=== PATIENT | female | born 1965 | race Caucasian/White ===

== ENCOUNTER 2024-08-01 23:59 | Emergency (ER) | payer MEDICAID, SELFPAY ==
[2024-08-02] VITALS: BMI 25.0
[2024-08-02 00:16] VITALS: BP 128/67; PULSE 84; RESP 20; TEMP 36.7; O2SAT 98
--- NOTE | 2024-08-02 00:25 | EDNOTE_ITS ---
ED Headache RME/HPI General Chief Complaint: Headache Stated Complaint: RIGHT SIDE HEAD PAIN, BLURRY VISION Time Seen by Provider: 08/02/24 00:22 Source: patient Arrival date/time: 08/01/24 23:59 58-year-old female with no known medical history presents to the emergency room with a chief complaint of tenderness and pain due to a sore under her right nostril. Patient states she popped this sore and is now having headache x 1 hour. Mode of arrival: ambulatory Limitations: no limitations Related Data Previous Rx's ?Medication ?Instructions ?Recorded ibuprofen 800 mg tablet 800 mg PO TID PRN pain #30 tabs 03/15/24 cephalexin 500 mg capsule 500 mg PO BID 7 days #14 caps 08/02/24 Allergies Allergy/AdvReac Type Severity Reaction Status Date / Time No Known Allergies Allergy Verified 03/15/24 17:07 Review of Systems Review of Systems Systems Reviewed: All systems reviewed, normal except as documented Constitutional Constitutional: Reports system reviewed and no additional complaints, except as documented, Denies fatigue, Denies fever(s), Denies headache(s) and Denies weakness Eyes Eyes: Reports system reviewed and no additional complaints, except as documented, Denies blurry vision and Denies change in vision ENT Ears, Nose, Mouth, and Throat: Reports system reviewed and no additional complaints, except as documented, Denies otalgia, Denies headache(s), Denies nasal congestion, Denies throat swelling and Denies vertigo Cardiovascular Cardiovascular: Reports system reviewed and no additional complaints, except as documented, Denies chest pain, Denies dyspnea and Denies dyspnea on exertion Respiratory Respiratory: Reports system reviewed and no additional complaints, except as documented, Denies chest congestion, Denies cough, Denies dyspnea, Denies dyspnea on exertion and Denies wheezing Gastrointestinal Gastrointestinal: Reports system reviewed and no additional complaints, except as documented, Denies abdominal pain, Denies cramping, Denies nausea and Denies vomiting Genitourinary Genitourinary: Reports system reviewed and no additional complaints, except as documented Musculoskeletal Musculoskeletal: Reports system reviewed and no additional complaints, except as documented and Denies back pain Integumentary/Breasts Skin/Breast: Reports system reviewed and no additional complaints, except as documented and Denies wounds Neurologic Neurologic: Reports system reviewed and no additional complaints, except as documented, Denies confusion, Denies headache(s), Denies lack of coordination, Denies vertigo and Denies weakness Psychiatric Psychiatric: Reports system reviewed and no additional complaints, except as documented, Denies anxiety, Denies confusion, Denies depression, Denies paranoia, Denies suicidal ideation and Denies tactile hallucinations Endocrine Endocrine: Reports system reviewed and no additional complaints, except as documented and Denies fatigue Hematologic/Lymphatic Hematologic/Lymphatic: Reports system reviewed and no additional complaints, except as documented and Denies lymphadenopathy Allergic/Immunologic Allergic/Immunologic: Reports system reviewed and no additional complaints, except as documented, Denies throat swelling, Denies urticaria and Denies wheezing Past Medical History Social History SMOKING STATUS: Never smoker ED Exam General Limitations: Present no limitations General appearance: Present alert and in no apparent distress Head Head exam: Present atraumatic Eye Eye exam: Present normal appearance, PERRL and EOMI ENT ENT exam: Present normal exam, normal oropharynx and mucous membranes moist Expanded ENT Exam External ear exam: Present normal external inspection Nose exam: Present sinus tenderness and other (Small nasal sore on the right nostril) Nasal speculum exam: Right: other (Sore to the right anterior nostril) Neck Neck exam: Present normal inspection, full ROM and trachea midline Chest Chest inspection: Present normal inspection and symmetric chest wall rise Respiratory Respiratory exam: Present normal lung sounds bilaterally Cardiovascular Cardiovascular exam: Present regular rate, normal rhythm and normal heart sounds Abdominal Exam Abdominal exam: Present soft and normal bowel sounds Extremities Exam Extremities exam: Present normal inspection and full ROM Back Exam Back exam: Present normal inspection and full ROM Neurological Exam Neurological exam: Present alert, oriented X3 and CN II-XII intact Psychiatric Psychiatric exam: Present normal affect and normal mood Skin Skin exam: Present warm, dry, intact and normal color Course Quality Measures none Orders Category Date Time Status Ketorolac Inj [Toradol Inj] Med 08/02/24 00:22 Discontinued 30 mg IM X1 ONE cefTRIAXone [Rocephin] 1,000 mg Med 08/02/24 00:22 Discontinued Lidocaine 1% 20 ml [Xylocaine 1% 20 ML] 2.1 ml IM X1 Vital Signs Vital signs: Vital Signs Temperature 98.1 F 08/02/24 00:16 Pulse Rate 84 08/02/24 00:16 Respiratory Rate 20 08/02/24 00:16 Blood Pressure 128/67 08/02/24 00:16 Pulse Oximetry (%) 98 08/02/24 00:16 Oxygen Delivery Method Room Air 08/02/24 00:16 O2 saturation 98% within normal limits Headache MDM Narrative MDM Narrative:: 58-year-old female with no known medical history presents to the emergency room with a chief complaint of tenderness and pain due to a sore under her right nostril. Patient states she popped this sore and is now having headache x 1 hour. Clinically the patient appears nontoxic and in no apparent distress. Physical examination shows a normal neurological examination. Pupils are PERRLA EOMs are intact patient has clear bilateral lung sounds. ENT examination shows a small sore/abscess that was popped and drained by the patient. Patient states that ever since she popped this abscess she began to develop a headache. Antibiotics were given to the patient patient was discharged and educated to follow-up with primary care provider return to the emergency room for any evidence of worsening signs or symptoms. The patient is currently afebrile there is no signs or symptoms of any infection. Patient is hemodynamically stable Patient data External records reviewed:: [facility] previous records Clinical information provided by:: patient Social determinants that could affect healthcare access:: none Patient has the following chronic illnesses:: No chronic illness How is presenting disease/condition affected by chronic disease/condition?: no chronic disease Evaluation data The following diagnostics were reviewed and interpreted by me:: lab results and radiology exam(s) Lab and/or radiology exams considered but not ordered:: Labs and radiology exams considered and ordered Interpretation Summary: N/A Medications / Prescriptions Medications or Prescriptions considered but not ordered:: Medication given Medication administrations:: Medication Administration History Discontinued Medications Ceftriaxone Sodium 1,000 mg/ (Lidocaine HCl 2.1 ml) 0 mg IM X1 ONE Stop: 08/02/24 00:23 Last Admin: 08/02/24 00:37 Dose: 2.1 mg Documented By: OA Ketorolac Tromethamine (Ketorolac Inj 60 Mg/2 Ml Vial) 30 mg IM X1 ONE Stop: 08/02/24 00:23 Last Admin: 08/02/24 00:37 Dose: 30 mg Documented By: OA Medication given Consultations Consultation(s) initiated? (list below): No Diagnosis Differential diagnosis headache: migraine, tension headache and headache Most likely diagnosis given after review of the tests above:: Headache Admission Indicated Admission indicated?: not indicated Admission Request Was there a request for admission?: No Disposition Plan Disposition Plan: Discharge Discharge Attestation Discharge Attestation: The patient and all family members were given an opportunity to ask questions and understood the discharge instructions. Discharge instructions specifically effects, indications for sooner follow up or return to the emergency department, and the expected course of current diagnosis. Patient condition: Stable Discharge Plan Plan Patient Disposition: HOME (Self Care) Disposition Comment: Stable Prescriptions/Referrals Prescriptions/Med Rec: New cephalexin 500 mg capsule 500 mg PO BID 7 Days Qty: 14 0RF No Action ibuprofen 800 mg tablet 800 mg PO TID PRN (Reason: pain) Qty: 30 0RF Problem List Clinical Impression: Headache, Nasal sore Patient/Caregiver Discharge Instructions Education Materials: Anatomy Nasal, ED Sinus Headache Additional Instructions: Please follow-up with your primary care provider in the next 24 to 48 hours. Antibiotics are sent to your pharmacy please pick them up and take them as indicated. For any evidence of worsening signs or symptoms please return to the emergency room immediately Print Language: Turkmen Stand Alone Forms: Neema Award Info., Patient Portal Info Letter EDWIN/RADHA Supervising Physician EDWIN/RADHA Supervising Physician: Dr Ramos
[2024-08-02] MEDS: KETOROLAC INJ 60 MG/2 ML VIAL 30 MG IM (00:37)
[2024-08-02] MEDS: cefTRIAXone 1,000 MG, LIDOCAINE 1% 20 ML 2.1 ML IM (00:37)
== END 2024-08-02 01:35 | disposition home or self-care (01) ==
LOC: SERX 08-02 01:05
PROVIDERS: Emergency Provider Emergency Medicine; PCP Family Medicine
DX: R51.9 Headache, unspecified (principal)
CPT/HCPCS: 96372; 99283; J0696; J1885; J3490

== ENCOUNTER 2025-03-26 13:21 | Inpatient (IN) | payer MEDICAID, SELFPAY ==
[2025-03-26 13:23] VITALS: BMI 26.3
[2025-03-26 13:34] VITALS: BP 124/82; PULSE 78; RESP 20; TEMP 36.6; O2SAT 99
--- NOTE | 2025-03-26 13:38 | PD.EDRME ---
Rapid Medical Screening Exam RME Arrival date/time: 03/26/25 13:21 59-year-old female presents to the Emergency Department of complaint of abdominal pain Chief Complaint: Abdominal Pain Vital signs: Vital Signs Temperature 97.8 F 03/26/25 13:34 Pulse Rate 78 03/26/25 13:34 Respiratory Rate 20 03/26/25 13:34 Blood Pressure 124/82 03/26/25 13:34 Pulse Oximetry (%) 99 03/26/25 13:34 Oxygen Delivery Method Room Air 03/26/25 13:34
[2025-03-26 14:25] LABS: Basophils # (Auto) 0.0 Thou/mm3 (0.0-0.2); Basophils % (Auto) 0 % (0-2.5); Eosinophils # (Auto) 0.0 Thou/mm3 (0.0-0.5); Eosinophils % (Auto) 0 % (0-10); Hematocrit 39.7 % (36.0-46.0); Hemoglobin 13.1 g/dL (12.0-16.0); Immature Granulocytes Auto 0.02 Thou/mm3 (0.00-0.00); Lymphocytes # (Auto) 0.7 Thou/mm3 (1.0-4.8); Lymphocytes % (Auto) 9 % (10-50); Mean Corpuscular HGB Conc 33.0 g/dl (31.0-37.0); Mean Corpuscular Hemoglobin 29.8 pg (25.0-35.0); Mean Corpuscular Volume 90 fL (80-100); Monocytes # (Auto) 0.3 Thou/mm3 (0.0-0.8); Monocytes % (Auto) 4 % (0-12); Neutrophils # (Auto) 6.4 Thou/mm3 (1.8-7.7); Neutrophils % (Auto) 86 % (37-80); Nucleated Red Blood Cell # 0.00 Thou/mm3 (0.00-0.00); Nucleated Red Blood Cell % 0 /100 WBC (0); Platelet Count 262 Thou/mm3 (140-440); RDW Standard Deviation 41.1 fL (36.4-46.3); Red Blood Count 4.39 Miln/mm3 (4.00-5.20); White Blood Count 7.5 Thou/mm3 (3.6-11.0)
[2025-03-26 14:46] LABS: Alanine Aminotransferase 15 U/L (10-49); Albumin, Serum 4.1 gm/dL (3.5-5.0); Albumin/Globulin Ratio 2.0 (1.2-2.2); Alkaline Phosphatase 91 U/L (46-116); Anion Gap 6 (7-16); Aspartate Amino Transferase 17 U/L (0-34); BUN/Creatinine Ratio 16 Ratio (12-20); Bilirubin,Total 0.5 mg/dL (0.3-1.2); Blood Urea Nitrogen 11 mg/dL (9-23); Calcium 10.1 mg/dL (8.3-10.6); Calcium (Corrected) 10.1 mg/dL (8.5-10.1); Carbon Dioxide 33.7 mMol/L (20.0-31.0); Chloride 103 mMol/L (98-107); Creatinine (Component) 0.7 mg/dL (0.6-1.3); Estimated Creatinine Clearance 90.1 mL/min (>60); Globulin 2.1 gm/dL (2.3-3.5); Glucose 125 mg/dL (74-106); Osmolality,Calculated 285 (275-295); Potassium 4.3 mMol/L (3.4-5.1); Sodium 143 mMol/L (136-145); Total Protein 6.2 gm/dL (5.7-8.2); eGFR > 60 See Note
--- NOTE | 2025-03-26 15:40 | XR_ITS ---
Examination: CT abdomen with intravenous contrast CT pelvis with intravenous contrast 2-D coronal reconstructions 2-D sagittal reconstructions Date and time of exam:March 26, 2025, 1645 hrs. Indications: Lower abdominal pain onset today.. CTDI: vol (mGy) 10.9. DLP: (mGycm) 597. Technique: Multiple axial sections of the abdomen and pelvis have been obtained. 64 slice high-resolution scanner used. 3 mm axial sections have been obtained, post intravenous injection 60 cc [id number]. 2-D sagittal, coronal reconstructions obtained. Low dose protocols were performed. One or more of the following dose reduction techniques were used; automated exposure control, adjustment of the mA and/or KV according to patient size, use of iterative reconstruction technique. Findings: Liver is mildly irregular in contour, no solid liver lesions. No gallstones. Spleen not enlarged. No pancreatic or adrenal mass. No renal or ureteral calculi, no hydronephrosis Surgical clips in the right abdomen. 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
--- NOTE | 2025-03-26 15:56 | PD.EDABDPN ---
ED Abdominal Pain RME/HPI General Chief Complaint: Abdominal Pain Stated complaint: ABD PAIN Time seen by provider: 03/26/25 13:38 Arrival date/time: 03/26/25 13:21 RME / HPI RME / HPI narrative: 03/26/25 13:21 59-year-old female presents to the Emergency Department of complaint of abdominal pain. Onset of symptoms since earlier today severity of symptoms 9 out of 10 described as crampy, diffuse in location associated with nausea. Denies any diarrhea constipation fever vomiting. Denies any other complaints no medication was taken prior to arrival. Related Data Previous Rx's ?Medication ?Instructions ?Recorded ibuprofen 800 mg tablet 800 mg PO TID PRN pain #30 tabs 03/15/24 Allergies Allergy/AdvReac Type Severity Reaction Status Date / Time gabapentin Allergy Severe Swelling Verified 03/26/25 16:06 of Lip/Tongue/Throat pregabalin (From Lyrica) Allergy Severe Swelling Verified 03/26/25 16:06 of Lip/Tongue/Throat duloxetine (From Cymbalta) AdvReac Severe Swelling Verified 03/26/25 16:06 of Lip/Tongue/Throat FLU SHOT Allergy Uncoded 03/26/25 16:06 Review of Systems Review of Systems Narrative Review of Systems: Review of system reviewed and within normal limits except mentioned in HPI ED Exam Narrative Physical exam: VITAL SIGNS: Reviewed. GENERAL APPEARANCE: Alert and interactive, follows commands, no acute distress, HEAD AND FACE: Non-traumatic. ENT: PERRL, pink conjunctivitis, eyelid no trauma, Mucous membrane moist. NECK: Supple, nontender, no nuchal rigidity. CHEST: No tenderness, no crepitus, no paradoxical movement, no retractions. LUNGS: Clear, well ventilated, symmetric, no rales, no wheezing, no ronchi, no stridor, good breath sounds bilaterally. HEART: Regular rate, regular rhythm, no murmur, no gallops. ABDOMEN: Soft, hyperactive positive bowel sounds, nondistended, no guarding, diffuse tenderness, no rebound, no masses, RECTAL: Deferred. GENITAL: Deferred. NEUROLOGICAL: Gross motor function intact sensory function intact, Appropriate for age. MUSCULOSKELETAL: low back nontender, full range of motion. EXTREMITIES: Nontender, full range of motion. SKIN: Color pink, dry, no rash, no lacerations, no abrasions, no contusions. LYMPHATICS: Deferred. Course Quality Measures none Orders Category Date Time Status COVID-19 Screening Questionnaire NOW Care 03/26/25 19:57 Active COVID-19 Screening Questionnaire NOW Care 03/26/25 20:[address] Screening NOW Care 03/26/25 15:40 Active Decision to Admit X1 Care 03/26/25 20:10 Active Insert IV NOW Care 03/26/25 15:40 Active Insert NG / OG tube NOW Care 03/26/25 19:17 Active NG / OG Tube to LIS NOW Care 03/26/25 18:[address] abdomen pelvis w con Stat Exams 03/26/25 15:40 Completed XR chest 1V post procedure Stat Exams 03/26/25 19:16 Completed Amylase Stat Lab 03/26/25 14:09 Completed CBC Stat Lab 03/26/25 14:09 Completed Comprehensive Metabolic Panel Stat Lab 03/26/25 14:09 Completed Lipase Stat Lab 03/26/25 14:09 Completed UA, C/S IF [Urinalysis, C/S if Indicated] Stat Lab 03/26/25 18:08 Completed Famotidine Inj [Pepcid Inj] Med 03/26/25 15:53 Discontinued 20 mg IVP X1 ONE HYDROmorphone INJ [Dilaudid Inj] Med 03/26/25 18:32 Discontinued 1 mg IVP X1 ONE HYDROmorphone INJ [Dilaudid Inj] Med 03/26/25 19:42 Discontinued 1 mg IVP X1 ONE Metoclopramide Inj [Reglan Inj] Med 03/26/25 15:53 Discontinued 10 mg IVP X1 ONE Morphine* Inj Med 03/26/25 15:41 Discontinued 4 mg IVP X1 ONE Ondansetron Inj [Zofran Inj] Med 03/26/25 15:40 Discontinued 4 mg IVP X1 ONE Ringers Lactated 1000 ml [Lactated Ringers] 1,000 ml Med 03/26/25 18:32 Active IV 125 mls/hr Ringers Lactated 1000 ml [Lactated Ringers] 1,000 ml Med 03/26/25 15:54 Discontinued IV 999 mls/hr Vital Signs Vital signs: Vital Signs Temperature 97.8 F 03/26/25 13:34 Pulse Rate 78 03/26/25 13:34 Respiratory Rate 20 03/26/25 13:34 Blood Pressure 124/82 03/26/25 13:34 Pulse Oximetry (%) 99 03/26/25 13:34 Oxygen Delivery Method Room Air 03/26/25 13:34 Abdominal Pain MDM [facility] Narrative [facility] Narrative:: 59-year-old female presents to the Emergency Department of complaint of abdominal pain. Onset of symptoms since earlier today severity of symptoms 9 out of 10 described as crampy, diffuse in location associated with nausea. Denies any diarrhea constipation fever vomiting. Denies any other complaints no medication was taken prior to arrival. 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 Laboratory workup came back unremarkable. CT scan of the abdomen and pelvis showed small bowel obstruction NG tube was placed, and attached to LIS. Patient was given IV fluids, initially given morphine still having pain I added Dilaudid Reglan with significant improvement of pain. Patient will be admitted for further management. I spoke with hospitalist, discussed the case, who admitted the patient. Patient data External records reviewed:: None Clinical information provided by:: patient Social determinants that could affect healthcare access:: none Patient has the following chronic illnesses:: None How is presenting disease/condition affected by chronic disease/condition?: no chronic disease Evaluation data The following diagnostics were reviewed and interpreted by me:: lab results and radiology exam(s) Lab and/or radiology exams considered but not ordered:: None Interpretation Summary: See results [facility] Medications / Prescriptions Medications or Prescriptions considered but not ordered:: None Medication administrations:: Medication Administration History Lactated Ringer's (Lactated Ringers) 1,000 mls @ 125 mls/hr IV .Q8H JOSE Stop: 04/25/25 18:31 Last Admin: 03/26/25 18:55 Dose: 125 mls/hr Documented By: HUI Discontinued Medications Famotidine (Famotidine Inj 10 Mg/Ml Vial 2 Ml) 20 mg IVP X1 ONE Stop: 03/26/25 15:54 Last Admin: 03/26/25 16:16 Dose: 20 mg Documented By: HUI Hydromorphone HCl (Hydromorphone Inj 2 Mg/Ml Vial) 1 mg IVP X1 ONE Stop: 03/26/25 18:33 Last Admin: 03/26/25 18:43 Dose: 1 mg Documented By: HUI Hydromorphone HCl (Hydromorphone Inj 2 Mg/Ml Vial) 1 mg IVP X1 ONE Stop: 03/26/25 19:43 Last Admin: 03/26/25 19:50 Dose: 1 mg Documented By: MARIO Lactated Ringer's (Lactated Ringers) 1,000 mls @ 999 mls/hr IV .Q1H1M ONE Stop: 03/26/25 16:54 Last Infusion: 03/26/25 18:16 Dose: Infused Documented By: Admin: 03/26/25 16:19 Dose: 999 mls/hr Documented By: DB Metoclopramide HCl (Metoclopramide Inj 5 Mg/Ml Vial 2 Ml) 10 mg IVP X1 ONE; Protocol Stop: 03/26/25 15:54 Last Admin: 03/26/25 16:15 Dose: 10 mg Documented By: DB Morphine Sulfate (Morphine Sulf Inj 4 Mg/Ml Vial) 4 mg IVP X1 ONE Stop: 03/26/25 15:42 Last Admin: 03/26/25 16:18 Dose: 4 mg Documented By: HUI Ondansetron HCl (Ondansetron Inj 2 Mg/Ml Inj 2 Ml) 4 mg IVP X1 ONE; Protocol Stop: 03/26/25 15:41 Last Admin: 03/26/25 16:20 Dose: Not Given Documented By: HUI Non-Admin Reason: Cancelled by Provider IV fluids, Zofran Reglan morphine Dilaudid Pepcid Consultations Consultation(s) initiated? (list below): No Diagnosis Differential diagnosis abdominal pain: abdominal pain, diverticulitis and small bowel obstruction Most likely diagnosis given after review of the tests above:: Small bowel obstruction Admission Indicated Admission indicated?: indicated Admission Request Was there a request for admission?: Yes Admission Attestation Admission request attestation: Discussed case with Hospitalist service regarding admission. Discussed patients ED course, exam findings, labs, and radiology results. The Hospitalist [agrees to accept the patient for admission. Disposition Plan Disposition Plan: Admit Discharge Plan Plan Patient Disposition: Admit Acute Care w/in Hospital Prescriptions/Referrals Prescriptions/Med Rec: No Action ibuprofen 800 mg tablet 800 mg PO TID PRN (Reason: pain) Qty: 30 0RF Referrals: No Primary/Family,Physician [Primary Care Provider] - In 1 week Problem List Clinical Impression: Small bowel obstruction Patient/Caregiver Discharge Instructions Print Language: St Helenian Stand Alone Forms: Neema Award Info., Patient Portal Info Letter
[2025-03-26] MEDS: METOCLOPRAMIDE INJ 5 MG/ML VIAL 2 ML 10 MG IVP (16:15)
[2025-03-26] MEDS: FAMOTIDINE INJ 10 MG/ML VIAL 2 ML 20 MG IVP (16:16)
[2025-03-26] MEDS: MORPHINE SULF INJ 4 MG/ML VIAL IVP (16:18)
[2025-03-26] MEDS: RINGERS LACTATED 1000 ML 1,000 ML 999 ML IV (16:19)
[2025-03-26 16:37] LABS: Amylase 108 U/L (30-118)
[2025-03-26 18:11] LABS: Collection Type, Urine Clean Catch
[2025-03-26 18:17] LABS: Amorphous Crystals,Urine Present (Absent); Bilirubin,Urine Negative (Negative); Blood,Urine Negative (Negative); Budding Yeast,Urine Present; Culture Indicated,Urine Contaminated; Glucose, Urine Negative (Negative); Ketones,Urine Negative (Negative); Leukocyte Esterase,Urine Negative (Negative); Nitrite,Urine Negative (Negative); PH,Urine 8.5 (5.0-7.0); Protein,Urine 1+ (Neg - Trace); RBC,Urine 3 /hpf (0-3); Specific Gravity,Urine 1.019 (1.001-1.035); Squamous Epithelial Cell,Urine 11 /hpf (0-5); Urobilinogen,Urine Negative mg/dL (0.0-1.0); WBC,Urine 47 /hpf (0-5)
[2025-03-26 18:20] LABS: Clarity,Urine Turbid (Clear/Hazy); Color,Urine Lt-Orange (Lt Yel-Yel)
[2025-03-26 18:33] VITALS: BP 125/73; PULSE 73; RESP 18; TEMP 36.4; O2SAT 100
[2025-03-26] MEDS: HYDROmorphone INJ 2 MG/ML VIAL 1 MG IVP ×2 (18:43→19:50)
[2025-03-26] MEDS: RINGERS LACTATED 1000 ML 1,000 ML 125 ML IV (18:55)
--- NOTE | 2025-03-26 19:16 | XR_ITS ---
Examination: AP chest single view Technique: AP portable upright chest single view Date and time: March 26, 2025 1923 hrs. Indications: Post orogastric tube placement Findings: Orogastric tube in stomach, tip below the level of the film Accentuation of the basilar interstitial markings. Normal heart size Impression: Orogastric tube in stomach, the tip is below the level of the film
[2025-03-26 20:32] VITALS: BP 125/76; PULSE 75; RESP 14; O2SAT 99
--- NOTE | 2025-03-26 20:56 | ESHP_ITS ---
<Statement entered by Víctor Mackenzie MD - 03/27/25 06:03> I have discussed and was present for the essential components of the history, physical examination, diagnosis, and treatment plan with the resident. I agree with the patient's care as documented by the resident and amended herein by me. Víctor Mackenzie MD FACP. Documentation for date of: 03/26/25 HPI History of Present Illness Chief complaint: Abdominal pain and nausea History of present illness: Miss Reina is a 59-year-old female with a past medical history of hypothyroidism, depression, anxiety disorder, borderline personality disorder, and narcolepsy, who presents to the ED on 03/26/2025 with a chief complaint of abdominal pain. The patient reports an acute onset of crampy, diffuse abdominal pain this morning, rated 6/10 in intensity, associated with nausea. She attempted to relieve the pain by drinking a probiotic, but this resulted in worsening of her symptoms. She has had one small, hard bowel movement with no hematochezia today. She endorses nausea, malaise, weakness, shortness of breath with physical exertion. Denies chest pain, fever, chills, headache, vomiting, diarrhea and hematuria. The patient has a history of multiple abdominal procedures, including six colonoscopies, due to a history of rectal bleeding, for which she is currently awaiting a follow-up appointment at [facility]. Patient reported that per her last PCP appointment they noted increased bowel adhesions. She is concern that those adhesions might be causing the abdominal pain. ED Course: -Initial vitals were BP 124/82, pulse 78, temp 97.8, O2 sat 99% on room air. -Labs significant for CO2 33.7,glucose 125, otherwise -Imaging included abd/pelvis CT showed small bowel obstruction -In the ED, patient was given metoclopramide, famotidine, morphine, 1 L LR -Patient was admitted for small bowel obstruction management Past Medical History: Mentioned above + SIBO Family History: Unremarkable Surgical History: Multiple abdominal surgeries in the past, hysterectomy, laparoscopic surgery 2007, Multiple colonoscopies, right hip replacement. Social History: Occasional drinks wine, marijuana for pain. Denies history of smoking Current Medications: (Source: ) Allergies: Gabapentin, pregabalin, duloxetine, flu shot Review of Systems Review of Systems Systems Reviewed: All systems reviewed, normal except as documented Exam Vital Signs Temp Pulse Resp BP Pulse Ox O2 Del Method 97.6 F 75 14 125/76 99 Room Air 03/26/25 18:33 03/26/25 20:32 03/26/25 20:32 03/26/25 20:32 03/26/25 20:32 03/26/25 20:32 Narrative Exam General: Alert, no acute distress.Conversational and non-toxic appearing. Skin: Warm, dry, intact. No rash or ecchymoses. Head: Normocephalic, atraumatic. Eye: Normal conjunctiva, PERRL. Throat: Oral mucosa moist. No obvious lesions in oropharynx. Cardiovascular: Regular rate and rhythm, no murmur, +S1/S2. Respiratory: Lungs are clear to auscultation, respirations unlabored, no crackles, no wheezing. Gastrointestinal: well-healed midline abdominal surgical scar, soft, nontender, non-distended. No guarding or rebound tenderness. Extremities: No edema, no cyanosis, no clubbing. Scar on the right hip Neuro: Alert and oriented x3.No focal deficits observed. Conversant, moving all extremities. No overt cerebellar signs/incoordination. Psychiatric: Cooperative, appropriate affect Results: Labs 03/26/25 14:09 03/26/25 14:09 Labs: Short CBC 03/26/25 Range/Units 14:09 WBC 7.5 (3.6-11.0) Thou/mm3 Hgb 13.1 (12.0-16.0) g/dL Hct 39.7 (36.0-46.0) % Plt Count 262 (140-440) Thou/mm3 BMP 03/26/25 14:09 Sodium 143 Potassium 4.3 Chloride 103 Carbon Dioxide 33.7 H BUN 11 Creatinine 0.7 Glucose 125 H Calcium 10.1 Liver Function 03/26/25 Range/Units 14:09 Total Bilirubin 0.5 (0.3-1.2) mg/dL AST 17 (0-34) U/L ALT 15 (10-49) U/L Alkaline Phosphatase 91 (46-116) U/L Albumin 4.1 (3.5-5.0) gm/dL Urine 03/26/25 Range/Units 18:08 Urine Color Lt-[place] A (Lt Yel-Yel) Urine Clarity Turbid A (Clear/Hazy) Urine pH 8.5 H (5.0-7.0) Ur Specific [place] 1.019 (1.001-1.035) Urine Protein 1+ A (Neg - Trace) Urine Glucose (UA) Negative (Negative) Quality Measures Quality Measures none Medications Home Medications and Allergies Home Medications ?Medication ?Instructions ?Recorded ?Confirmed ?Type clotrimazole 1 % topical solution 1 applic topical Q12 H 03/26/25 03/26/25 History conjugated estrogens 0.9 mg tablet 0.9 mg PO DAILY 06/0903/26/25 History (Premarin) docusate sodium 100 mg capsule 100 mg PO BID 03/26/25 03/26/25 History fluoxetine 60 mg tablet 60 mg PO DAILY 03/26/2503/16 History levothyroxine 50 mcg tablet 50 mcg PO DAILY 03/26/25 0 03/26/25 History lifitegrast 5 % eye drops in a 1 drp ophthalmic (eye) Q12H 03/26/25 03/26/25 History dropperette (Xiidra) Allergies Allergy/AdvReac Type Severity Reaction Status Date / Time gabapentin Allergy Severe Swelling Verified 03/26/25 16:06 of Lip/Tongue/Throat pregabalin (From Lyrica) Allergy Severe Swelling Verified 03/26/25 16:06 of Lip/Tongue/Throat duloxetine (From Cymbalta) AdvReac Severe Swelling Verified 03/26/25 16:06 of Lip/Tongue/Throat FLU SHOT Allergy Uncoded 03/26/25 16:06 Visit Medications Lactated Ringer's (Lactated Ringers) 1,000 mls @ 125 mls/hr IV .Q8H JOSE Stop: 04/25/25 18:31 Last Admin: 03/26/25 18:55 Dose: 125 mls/hr Ondansetron HCl (Ondansetron Inj 2 Mg/Ml Inj 2 Ml) 4 mg IVP Q6H PRN; Protocol PRN Reason: NAUSEA OR VOMITING Stop: 04/25/25 20:48 Discontinued Medications Famotidine (Famotidine Inj 10 Mg/Ml Vial 2 Ml) 20 mg IVP X1 ONE Stop: 03/26/25 15:54 Last Admin: 03/26/25 16:16 Dose: 20 mg Hydromorphone HCl (Hydromorphone Inj 2 Mg/Ml Vial) 1 mg IVP X1 ONE Stop: 03/26/25 18:33 Last Admin: 03/26/25 18:43 Dose: 1 mg Hydromorphone HCl (Hydromorphone Inj 2 Mg/Ml Vial) 1 mg IVP X1 ONE Stop: 03/26/25 19:43 Last Admin: 03/26/25 19:50 Dose: 1 mg Lactated Ringer's (Lactated Ringers) 1,000 mls @ 999 mls/hr IV .Q1H1M ONE Stop: 03/26/25 16:54 Last Infusion: 03/26/25 18:16 Dose: Infused Metoclopramide HCl (Metoclopramide Inj 5 Mg/Ml Vial 2 Ml) 10 mg IVP X1 ONE; Protocol Stop: 03/26/25 15:54 Last Admin: 03/26/25 16:15 Dose: 10 mg Morphine Sulfate (Morphine Sulf Inj 4 Mg/Ml Vial) 4 mg IVP X1 ONE Stop: 03/26/25 15:42 Last Admin: 03/26/25 16:18 Dose: 4 mg Ondansetron HCl (Ondansetron Inj 2 Mg/Ml Inj 2 Ml) 4 mg IVP X1 ONE; Protocol Stop: 03/26/25 15:41 Last Admin: 03/26/25 16:20 Dose: Not Given Assessment & Plan Plan Patient is a 59-year-old female with a past medical history of hypothyroidism, depression, anxiety disorder, borderline personality disorder, and narcolepsy, who presents to the ED on 03/26/2025 with a chief complaint of abdominal pain. Admitted for small bowel obstruction management. #Acute onset abdominal pain 2/2 #Small bowel obstruction #History of multiple abdominal procedures Patient presented acute onset abdominal pain that is diffuse and crampy pain associated with nausea with no vomiting. Patient does have a history of multiple bowel procedures and adhesions which might have led to the SBO. Abdominal/pelvis CT showed: Multiple fluid distended small bowel loops in the abdomen and pelvis, small bowel obstruction. No signs of bowel ischemia on exam or imaging. - XR small bowel series - NPO - Bowel rest- NGT intermitt low suction - Continue with IV 1L LR at 125mls/hr - Zofran IV for nausea - Pain control with Acetaminophen (pain 1-3), morphine (4-6), Dilaudid (7-10) PRN ? Consult gen-surg as needed or if SBO does not resolve. #Hypothyroidism Home meds levothyroxine 50 mg PO - Started levothyroxine 30mcg IV Qday #Major depressive disorder #Anxiety Disorder #Borderline personality disorder #Hx Narcolepsy Hx of psychiatry disorders. -Pending med [facility] Hospital management: Lines: peripheral IV Diet: NPO Bowel: NA DVT prophylaxis: Heparin SC Disposition: SBO management gem CODE STATUS: DNR Patient seen and assessed under supervision of attending physician and discuss with senior resident Dr. Mabry PGY-2 Brooklynn Gallagher MD PGY-1, Internal Medicine Please note: this document was transcribed using voice recognition technology; minor inaccuracies may be present.
[2025-03-26 21:37] VITALS: BP 135/75; PULSE 68; RESP 18; TEMP 36.5; O2SAT 98
--- NOTE | 2025-03-26 22:01 | XR_ITS ---
Examination: Upper GI series AP supine abdomen 6 views Date and time: March 26, 2025, 1052 hrs. Indications: Abdominal pain and distention this week, small bowel obstruction pattern on CT abdomen pelvis 03/26/2025 1645 hrs. Technique And Findings: 120 cc Gastrografin administered through the patient's orogastric tube Immediate, 30 minute, 1 hour, 2 hour, 4 hour, 6 hour films obtained Contrast in distended small bowel loops including on the 6 hour delayed film Impression: Small bowel obstruction pattern Recommend follow-up films 6:00 AM, 9:00 AM, 12 noon
[2025-03-26] MEDS: MORPHINE SULF INJ 4 MG/ML VIAL 2 MG IV (22:48)
[2025-03-26] MEDS: ONDANSETRON INJ 2 MG/ML INJ 2 ML 4 MG IVP (22:52)
[2025-03-26] MEDS: HEPARIN SOD INJ 5000 UNIT/ML VIAL SC (23:13)
[2025-03-26 23:30] VITALS: BMI 27.1
[2025-03-27] VITALS: BP 130/73; PULSE 62; RESP 17; TEMP 36.2; O2SAT 94
[2025-03-27] MEDS: HYDROmorphone INJ 2 MG/ML VIAL 0.5 MG IVP ×2 (00:34→11:02)
[2025-03-27] MEDS: RINGERS LACTATED 1000 ML 1,000 ML 125 ML IV ×3 (03:07→22:01)
[2025-03-27 04:00] VITALS: BP 128/70; PULSE 60; RESP 17; TEMP 36.1; O2SAT 95
[2025-03-27 05:51] LABS: Basophils # (Auto) 0.0 Thou/mm3 (0.0-0.2); Basophils % (Auto) 0 % (0-2.5); Eosinophils # (Auto) 0.0 Thou/mm3 (0.0-0.5); Eosinophils % (Auto) 0 % (0-10); Hematocrit 40.4 % (36.0-46.0); Hemoglobin 13.0 g/dL (12.0-16.0); Immature Granulocytes Auto 0.03 Thou/mm3 (0.00-0.00); Lymphocytes # (Auto) 0.5 Thou/mm3 (1.0-4.8); Lymphocytes % (Auto) 5 % (10-50); Mean Corpuscular HGB Conc 32.2 g/dl (31.0-37.0); Mean Corpuscular Hemoglobin 29.2 pg (25.0-35.0); Mean Corpuscular Volume 91 fL (80-100); Monocytes # (Auto) 0.6 Thou/mm3 (0.0-0.8); Monocytes % (Auto) 6 % (0-12); Neutrophils # (Auto) 8.4 Thou/mm3 (1.8-7.7); Neutrophils % (Auto) 88 % (37-80); Nucleated Red Blood Cell # 0.00 Thou/mm3 (0.00-0.00); Nucleated Red Blood Cell % 0 /100 WBC (0); Platelet Count 226 Thou/mm3 (140-440); RDW Standard Deviation 41.1 fL (36.4-46.3); Red Blood Count 4.45 Miln/mm3 (4.00-5.20); White Blood Count 9.5 Thou/mm3 (3.6-11.0)
[2025-03-27 06:32] LABS: Alanine Aminotransferase 13 U/L (10-49); Albumin, Serum 3.6 gm/dL (3.5-5.0); Albumin/Globulin Ratio 1.7 (1.2-2.2); Alkaline Phosphatase 88 U/L (46-116); Anion Gap 8 (7-16); Aspartate Amino Transferase 14 U/L (0-34); BUN/Creatinine Ratio 13 Ratio (12-20); Bilirubin,Total 0.5 mg/dL (0.3-1.2); Blood Urea Nitrogen 9 mg/dL (9-23); Calcium 9.8 mg/dL (8.3-10.6); Calcium (Corrected) 10.1 mg/dL (8.5-10.1); Carbon Dioxide 31.1 mMol/L (20.0-31.0); Chloride 104 mMol/L (98-107); Creatinine (Component) 0.7 mg/dL (0.6-1.3); Estimated Creatinine Clearance 91.4 mL/min (>60); Globulin 2.1 gm/dL (2.3-3.5); Glucose 127 mg/dL (74-106); Magnesium 1.8 mg/dL (1.6-2.6); Osmolality,Calculated 285 (275-295); Phosphorous 4.4 mg/dL (2.4-5.1); Potassium 4.0 mMol/L (3.4-5.1); Sodium 143 mMol/L (136-145); Total Protein 5.7 gm/dL (5.7-8.2); eGFR > 60 See Note
[2025-03-27 08:00] VITALS: BP 101/66; PULSE 76; RESP 18; TEMP 36.5; O2SAT 95
--- NOTE | 2025-03-27 09:00 | XR_ITS ---
Examination: Abdomen AP single view Technique: AP portable supine abdomen, single view Exam date and time: March 27, 2025 0908 hours INDICATIONS: Abdominal pain and distention this week, small bowel obstruction pattern on CT abdomen pelvis yesterday, 10 hour delayed film post small bowel series FINDINGS: Contrast present throughout the entire colon IMPRESSION: Negative for small bowel obstruction
[2025-03-27] MEDS: HEPARIN SOD INJ 5000 UNIT/ML VIAL SC ×2 (09:13→20:34)
--- NOTE | 2025-03-27 11:28 | PC.SS ---
Patient is alert/oriented. Patient was able to verify demographics. Patient was admitted for abdominal pain. Patient states she resides alone. Patient is independent with ADL's. No DME. Pharmacy: [facility] PCP: Dr. Moffett, [facility]. Last appt. was in February. Patient discharge plan is to return home. No needs Alt medical decision maker: Vivian Renee, transportation: family
[2025-03-27 12:00] VITALS: BP 110/72; PULSE 74; RESP 18; TEMP 36.4; O2SAT 95
--- NOTE | 2025-03-27 15:22 | ESPR_ITS ---
<Statement entered by Ki Perry MD - 03/27/25 18:19> Overnight admission for small bowel obstruction. Seen and examined at bedside and patient appears to be in only mild discomfort. However, she was able to have a bowel movement in the afternoon and small bowel series showed absence of obstruction. Thus she was started on clear liquid diet and advance to full liquid for dinner and anticipate discharge within next 24 to 48 hours. ----- Note reviewed and agree with care plan as documented. Please refer to the note below for further details. Plan discussed with attending physician Dr. Amol Perry MD PGY-2 Internal Medicine Documentation for date of: 03/27/25 Subjective Subjective Interval history: Patient was seen and examined at bedside. No acute events took place overnight. 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 The abdominal pain is rated 6-7 out of 10, and is worse with movement. Patient admits to nausea, hot and cold feeling but denies recent fevers, or sick contact. She recalls on March 08, 2025 that her bowel movement was bloody. However since then she has not had hematochezia dark stools or diarrhea. She has been told by previous GI doctors that she has SIBO. Not only did the patient tolerate a liquid clear diet at lunch, but by 3 PM in the afternoon she had a bowel movement too. Diet was advanced to full liquid for dinner. Exam Vital Signs Temp Pulse Resp BP Pulse Ox O2 Del Method 97.7 F 76 18 101/66 95 Room Air 03/27/25 08:00 03/27/25 08:00 03/27/25 08:00 03/27/25 08:00 03/27/25 08:00 03/27/25 08:00 Narrative Exam Physical Exam:? General: Alert, no acute distress.Conversational and non-toxic appearing. Skin: Warm, dry, intact. No rash or ecchymoses. Head: Normocephalic, atraumatic. Eye: Normal conjunctiva, PERRL. Throat: Oral mucosa moist. No obvious lesions in oropharynx. Cardiovascular: Regular rate and rhythm, no murmur, +S1/S2. Respiratory: Lungs are clear to auscultation, respirations unlabored, no crackles, no wheezing. Gastrointestinal: well-healed midline abdominal surgical scar, soft, nontender, non-distended. Distended bowel loops present in the left lower quadrant. Somewhat diminished bowel sounds throughout. Percussion tympanic in all 4 quadrants. No guarding or rebound tenderness. Extremities: No edema, no cyanosis, no clubbing. Scar on the right hip Neuro: Alert and oriented x3.No focal deficits observed. Conversant, moving all extremities. No overt cerebellar signs/incoordination. Psychiatric: Cooperative, appropriate affect Objective Labs 03/28/25 04:15 03/28/25 04:15 Labs: Laboratory Results - last 24 hr 03/26/25 03/26/25 03/26/25 14:09 14:09 18:08 WBC RBC Hgb Hct MCV MCH MCHC RDW Std Deviation Plt Count Neut % (Auto) Lymph % (Auto) [place] % (Auto) Eos % (Auto) Baso % (Auto) Neut # (Auto) Lymph # (Auto) [place] # (Auto) Eos # (Auto) Baso # (Auto) Immature Gran # (Auto) Absolute Nucleated RBC Immature Gran % Nucleated RBC % Sodium Potassium Chloride Carbon Dioxide Anion Gap BUN Creatinine Estim Creat Clear Calc eGFR BUN/Creatinine Ratio Glucose Calculated Osmolality Calcium Corrected Calcium Phosphorus Magnesium Total Bilirubin AST ALT Alkaline Phosphatase Total Protein Albumin Globulin Albumin/Globulin Ratio Amylase 108 Cancelled Ur Collection Type Clean Catch Urine Color Lt-[place] A Urine Clarity Turbid A Urine pH 8.5 H Ur Specific [place] 1.019 Urine Protein 1+ A Urine Glucose (UA) Negative Urine Ketones Negative Urine Blood Negative Urine Nitrite Negative Urine Bilirubin Negative Urine Urobilinogen (Auto) Negative Ur Leukocyte Esterase Negative Urine RBC 3 Urine WBC 47 H Ur Squamous Epith Cells 11 H Amorphous Crystals Present A Urine Bacteria None Urine Yeast (Budding) Present A Ur Culture Indicated? Contaminated 03/27/25 04:28 WBC 9.5 RBC 4.45 Hgb 13.0 Hct 40.4 MCV 91 MCH 29.2 MCHC 32.2 RDW Std Deviation 41.1 Plt Count 226 D Neut % (Auto) 88 H Lymph % (Auto) 5 L [place] % (Auto) 6 Eos % (Auto) 0 Baso % (Auto) 0 Neut # (Auto) 8.4 H Lymph # (Auto) 0.5 L [place] # (Auto) 0.6 Eos # (Auto) 0.0 Baso # (Auto) 0.0 Immature Gran # (Auto) 0.03 H Absolute Nucleated RBC 0.00 Immature Gran % 0 Nucleated RBC % 0 Sodium 143 Potassium 4.0 Chloride 104 Carbon Dioxide 31.1 H Anion Gap 8 BUN 9 Creatinine 0.7 Estim Creat Clear Calc 91.4 eGFR > 60 BUN/Creatinine Ratio 13 Glucose 127 H Calculated Osmolality 285 Calcium 9.8 Corrected Calcium 10.1 Phosphorus 4.4 Magnesium 1.8 Total Bilirubin 0.5 AST 14 ALT 13 Alkaline Phosphatase 88 Total Protein 5.7 Albumin 3.6 D Globulin 2.1 L Albumin/Globulin Ratio 1.7 Amylase Ur Collection Type Urine Color Urine Clarity Urine pH Ur Specific [place] Urine Protein Urine Glucose (UA) Urine Ketones Urine Blood Urine Nitrite Urine Bilirubin Urine Urobilinogen (Auto) Ur Leukocyte Esterase Urine RBC Urine WBC Ur Squamous Epith Cells Amorphous Crystals Urine Bacteria Urine Yeast (Budding) Ur Culture Indicated? Quality Measures Quality Measures none Assessment & Plan Assessment Current Active Medications: Generic Name Dose Route Start Last Admin Trade Name Freq PRN Reason Stop Dose Admin Heparin Sodium (Porcine) 5,000 unit 03/26/25 22:15 03/27/25 09:13 Heparin Sod Inj 5000 Unit/Ml Vial SC 04/09/25 22:14 5,000 unit BID JOSE Administration Hydromorphone HCl 0.5 mg 03/26/25 23:55 03/27/25 11:02 Hydromorphone Inj 2 Mg/Ml Vial IVP 03/31/25 23:51 0.5 mg Q4HR PRN Administration Pain 7-10 ( SEVERE) Lactated Ringer's 1,000 mls @ 125 mls/hr 03/26/25 18:32 03/27/25 11:02 Lactated Ringers IV 04/25/25 18:31 125 mls/hr .Q8H JOSE Administration Morphine Sulfate 2 mg 03/26/25 21:02 Morphine Sulf Inj 4 Mg/Ml Vial IV 03/31/25 21:01 Q6HR PRN PAIN SCALE 4-6 (Moderate Ondansetron HCl 4 mg 03/26/25 20:49 03/26/25 22:52 Ondansetron Inj 2 Mg/Ml Inj 2 Ml IVP 04/25/25 20:48 4 mg Q6H PRN Administration NAUSEA OR VOMITING Protocol Plan 59-year-old female with a past medical history of hypothyroidism, depression, anxiety disorder, borderline personality disorder, and narcolepsy, who presents to the ED on 03/26/2025 with a chief complaint of abdominal pain. Patient was admitted for workup and inpatient management of small bowel obstruction as seen in preliminary imaging. #Acute onset abdominal pain 2/2 #Small bowel obstruction, resolved #History of multiple abdominal procedures Patient presented acute onset abdominal pain that is diffuse and crampy pain associated with nausea with no vomiting.? Patient does have a history of multiple bowel procedures and adhesions which might have led to the SBO. Abdominal/pelvis CT showed: Multiple fluid distended small bowel loops in the abdomen and pelvis, small bowel obstruction. No signs of bowel ischemia on exam or imaging. Small bowel series: 10-hour delayed film post small bowel series showed contrast present throughout the entire colon demonstrating resolution of small bowel obstruction Patient had a moderate size BM in the early afternoon of 03/27 - DC'ed NGT - Diet advanced to full liquid - Continue with IV 1L LR at 125mls/hr - Zofran IV for nausea - Pain control with Acetaminophen (pain 1-3), morphine (4-6), Dilaudid (7-10) PRN ? Consult gen-surg as needed or if SBO does not resolve. #Hypothyroidism Home meds levothyroxine 50 mg PO - Started levothyroxine 30mcg IV Qday #Major depressive disorder #Anxiety Disorder #Borderline personality disorder #Hx Narcolepsy Hx of psychiatry disorders. -Resumed home fluoxetine 60mg daily Hospital management: Lines: peripheral IV Diet: NPO Bowel: NA DVT prophylaxis: Heparin SC Disposition: SBO? management gem CODE STATUS: DNR Attending Provider Attestation/Addendum Yary Ashton DO, attest that I was physically present for the ray portions of the service and evaluated the patient with the resident and I reviewed and discussed the case with the resident and agree with the resident's findings and plans of care as documented above Patient seen and evaluated this AM. KUB shows resolution of SBO. Patient reports that she continues to have some lingering pain upon moving. She has never had an SBO in the past. Liquid diet has been started. Patient has been tolerating well. Will advance as tolerated. If patient is able to tolerate breakfast, mechanically soft diet, anticipate DC within next 24h.
[2025-03-27 16:00] VITALS: BP 124/77; PULSE 77; RESP 17; TEMP 36.5; O2SAT 97
[2025-03-27] MEDS: MORPHINE SULF INJ 4 MG/ML VIAL 2 MG IV (19:26)
[2025-03-27 20:00] VITALS: BP 99/53; PULSE 78; RESP 18; TEMP 36.4; O2SAT 97
[2025-03-28] VITALS: BP 104/53; PULSE 78; RESP 18; TEMP 36.3; O2SAT 94
[2025-03-28] MEDS: MORPHINE SULF INJ 4 MG/ML VIAL 2 MG IV ×2 (02:19→08:42)
[2025-03-28 04:00] VITALS: BP 109/62; PULSE 74; RESP 18; TEMP 36.2; O2SAT 97
[2025-03-28 05:39] LABS: Basophils # (Auto) 0.0 Thou/mm3 (0.0-0.2); Basophils % (Auto) 0 % (0-2.5); Eosinophils # (Auto) 0.1 Thou/mm3 (0.0-0.5); Eosinophils % (Auto) 2 % (0-10); Hematocrit 33.2 % (36.0-46.0); Hemoglobin 10.5 g/dL (12.0-16.0); Immature Granulocytes Auto 0.01 Thou/mm3 (0.00-0.00); Lymphocytes # (Auto) 1.5 Thou/mm3 (1.0-4.8); Lymphocytes % (Auto) 34 % (10-50); Mean Corpuscular HGB Conc 31.6 g/dl (31.0-37.0); Mean Corpuscular Hemoglobin 29.1 pg (25.0-35.0); Mean Corpuscular Volume 92 fL (80-100); Monocytes # (Auto) 0.3 Thou/mm3 (0.0-0.8); Monocytes % (Auto) 7 % (0-12); Neutrophils # (Auto) 2.6 Thou/mm3 (1.8-7.7); Neutrophils % (Auto) 57 % (37-80); Nucleated Red Blood Cell # 0.00 Thou/mm3 (0.00-0.00); Nucleated Red Blood Cell % 0 /100 WBC (0); Platelet Count 182 Thou/mm3 (140-440); RDW Standard Deviation 42.1 fL (36.4-46.3); Red Blood Count 3.61 Miln/mm3 (4.00-5.20); White Blood Count 4.5 Thou/mm3 (3.6-11.0)
[2025-03-28] MEDS: RINGERS LACTATED 1000 ML 1,000 ML 125 ML IV (06:30)
[2025-03-28 06:34] LABS: Alanine Aminotransferase 11 U/L (10-49); Albumin, Serum 2.9 gm/dL (3.5-5.0); Albumin/Globulin Ratio 1.8 (1.2-2.2); Alkaline Phosphatase 71 U/L (46-116); Anion Gap 8 (7-16); Aspartate Amino Transferase 13 U/L (0-34); BUN/Creatinine Ratio 11 Ratio (12-20); Bilirubin,Total 0.5 mg/dL (0.3-1.2); Blood Urea Nitrogen 8 mg/dL (9-23); Calcium 8.3 mg/dL (8.3-10.6); Calcium (Corrected) 9.2 mg/dL (8.5-10.1); Carbon Dioxide 30.4 mMol/L (20.0-31.0); Chloride 104 mMol/L (98-107); Creatinine (Component) 0.7 mg/dL (0.6-1.3); Estimated Creatinine Clearance 91.4 mL/min (>60); Globulin 1.6 gm/dL (2.3-3.5); Glucose 84 mg/dL (74-106); Magnesium 1.5 mg/dL (1.6-2.6); Osmolality,Calculated 280 (275-295); Phosphorous 2.9 mg/dL (2.4-5.1); Potassium 4.2 mMol/L (3.4-5.1); Sodium 142 mMol/L (136-145); Total Protein 4.5 gm/dL (5.7-8.2); eGFR > 60 See Note
[2025-03-28 08:00] VITALS: BP 125/67; PULSE 76; RESP 16; TEMP 36.1; O2SAT 97
[2025-03-28] MEDS: Magnesium Sulfate 2 GM Ivpb 2 GM/50 ML BAG IV ×2 (08:41→10:41)
[2025-03-28] MEDS: HEPARIN SOD INJ 5000 UNIT/ML VIAL SC (08:41)
[2025-03-28] MEDS: LEVOTHYROXINE SODIUM 25 MCG TABLET 50 MCG PO (10:35)
[2025-03-28] MEDS: LIDOCAINE 5% 1 PATCH TOP (10:35)
--- NOTE | 2025-03-28 11:17 | ESDS_ITS ---
<Statement entered by Yary Carmichael DO - 03/28/25 17:32> I, Yary Carmichael DO, attest that I was physically present for the ray portions of the service and evaluated the patient with the resident and I reviewed and discussed the case with the resident and agree with the resident's findings and plans of care as documented above <Statement entered by Britton Brown MD - 03/28/25 13:53> Patient was examined with the team including attending physician. Note reviewed, I agree with the discharge plan as documented. - Britton Brown MD PGY 3 Disclaimer: The document may contain phonetic/typographic errors due to voice recognition software. Planned Discharge Date 03/28/25 DS: Providers Provider Date of admission: 03/27/25 10:28 Primary care physician: Physician No Primary/Family Admitting Provider: Víctor Mackenzie MD Attending Provider on Admission: Víctor Mackenzie MD Attending Provider on DC: Terry Shirley DO Discharging Provider: Terry Shirley DO DS: Diagnosis Problem List Completed Was Problem List Reviewed/Reconciled?: Yes Hospital Course Hospital Course Hospital course: 59-year-old female with past medical history of hypothyroidism, depression, anxiety disorder, borderline personality disorder, and presented to the ED on 03/26/2025 with a chief complaint of abdominal pain. Patient had her last bowel movement in the yard caller of the day of the ED presentation and the passage of stool had not made a difference into her abdominal pain. Initial CT A/P showed pattern concerning for SBO. There were multiple fluid distended small bowel loops in the abdomen and pelvis. Small bowel series at the 10-hour delayed film showed contrast present throughout the entire colon demonstrating resolution of the SBO. NG tube was discontinued and diet was advanced to clear liquid. Patient was able to tolerate the intake without nausea or vomiting, and by early afternoon of 03/27 she already had a sizable formed bowel movement. Diet was subsequently advanced to routine, with continued tolerance, and improvement in presenting symptoms. WBC count stayed less than 10, hemoglobin was stable at 13, there was a dip on 03/28 with Hgb 10.5. Patient stayed afebrile. Patient was seen and examined at bedside. No acute events took place overnight. Admission Diagnoses: #Acute onset abdominal pain 2/2 #Small bowel obstruction, resolved #History of multiple abdominal procedures #Hypothyroidism #Major depressive disorder #Anxiety disorder #Borderline personality disorder #History of narcolepsy Discharge Instructions: - Follow-up with your primary care provider within 1 week of discharge from hospital - Follow your hemoglobin levels through repeated labs and watch for symptoms of lightheadedness, pallor, fatigue, shortness of breath, etc concerning for anemia secondary to possible GI bleed - If there are concerns over worsening anemia or evidence for blood on the stool, recommend outpatient gastroenterology referral for evaluation of colonoscopy need. - Continue to take medications as prescribed below in the prescriptions/med rec section - You have had developed abdominal adhesions from previous abdominal surgeries, recommend use of keiq-beq-bwzwrvo laxatives for prevention of constipation - If your symptoms recur or worsen, or there are new onset fevers >38C, go to ER. This case was discussed with my attending physician, Dr. Carmichael, and senior resident, Dr Brown. Terry Shirley, DO PGY I Status at Discharge Cognitive/behavioral status at discharge: stable Functional status at discharge: independent ambulation Overall status at discharge: patient is back to baseline Time Spent with Patient Time attestation: Total time spent providing and/or coordinating discharge services:More than 50% of the patient's hospital stay Time spent: Greater than 30 minutes Exam Vital Signs Temp Pulse Resp BP Pulse Ox O2 Del Method 97 F 76 16 125/67 97 Room Air 03/28/25 08:00 03/28/25 08:00 03/28/25 08:00 03/28/25 08:00 03/28/25 08:00 03/28/25 08:00 Narrative Exam General: Alert, no acute distress.Conversational and non-toxic appearing. Skin: Warm, dry, intact. No rash or ecchymoses. Head: Normocephalic, atraumatic. Eye: Normal conjunctiva, PERRL. Throat: Oral mucosa moist. No obvious lesions in oropharynx. Cardiovascular: Regular rate and rhythm, no murmur, +S1/S2. Respiratory: Lungs are clear to auscultation, respirations unlabored, no crackles, no wheezing. Gastrointestinal: well-healed midline abdominal surgical scar, soft. Somewhat diminished bowel sounds throughout. Percussion tympanic in all 4 quadrants. Mild tenderness to palpation over LLQ Distended bowel loops present in the left lower quadrant. No guarding or rebound tenderness. Extremities: No edema, no cyanosis, no clubbing. Scar on the right hip Neuro: Alert and oriented x3.No focal deficits observed. Conversant, moving all extremities. No overt cerebellar signs/incoordination. Psychiatric: Cooperative, appropriate affect Discharge Plan Plan Patient Disposition: HOME (Self Care) Patient condition on transfer: Stable Care Plan Goals: - Follow-up with your primary care provider within 1 week of discharge from hospital - Follow your hemoglobin levels through repeated labs and watch for symptoms of lightheadedness, pallor, fatigue, shortness of breath, etc concerning for anemia secondary to possible GI bleed - If there are concerns over worsening anemia or evidence for blood on the stool, recommend outpatient gastroenterology referral for evaluation of colonoscopy need. - Continue to take medications as prescribed below in the prescriptions/med rec section - You have had developed abdominal adhesions from previous abdominal surgeries, recommend use of gzhu-lao-sphauzx laxatives for prevention of constipation - If your symptoms recur or worsen, or there are new onset fevers >38C, go to ER. Prescriptions/Referrals Prescriptions/Med Rec: No Action Xiidra 5 % dropperette 1 drp OPHTHALMIC (EYE) Q12H Patient Comments: INSTILL 1 DROP IN BOTH EYES TWICE DAILY FOR 30 DAYS clotrimazole 1 % solution 1 applic TOPICAL Q12H Patient Comments: APPLY TO AFFECTED AREA TWICE A DAY Premarin 0.9 mg tablet 0.9 mg PO DAILY Patient Comments: TAKE 1 TABLET BY MOUTH EVERY DAY docusate sodium 100 mg capsule 100 mg PO BID Patient Comments: TAKE 1 CAPSULE BY MOUTH TWICE A DAY NEEDED FOR CONSTIPATION fluoxetine 60 mg tablet 60 mg PO DAILY Patient Comments: TAKE 1 TABLET BY MOUTH EVERY DAY levothyroxine 50 mcg tablet 50 mcg PO DAILY Patient Comments: TAKE 1 TABLET BY MOUTH EVERY DAY Referrals: No Primary/Family,Physician [Primary Care Provider] Patient/Caregiver Discharge Instructions Education Materials: Small Bowel Obstruction, How the Colon Works Print Language: Greenlandic Stand Alone Forms: Neema Award Info., Patient Portal Info Letter Quality Discharge Quality Measures VTE prophylaxis
[2025-03-28 12:00] VITALS: BP 109/67; PULSE 80; RESP 16; TEMP 36.2; O2SAT 95
== END 2025-03-28 14:50 | disposition home or self-care (01) | DRG 247 ==
LOC: SERX 20:11 → SERHOLD 21:56 → S3NX 03-27 06:12
PROVIDERS: Nurse Practitioner Primary Care; Admitting Provider Internal Medicine; Emergency Provider Family Medicine; Visit Provider Internal Medicine
DX: K56.50 Intestinal adhesions [bands], unspecified as to partial versus complete obstruction (principal); E03.9 Hypothyroidism, unspecified; F41.9 Anxiety disorder, unspecified; G47.419 Narcolepsy without cataplexy; F32.9 Major depressive disorder, single episode, unspecified; F60.3 Borderline personality disorder; Z66 Do not resuscitate; Z79.890 Hormone replacement therapy; Z88.8 Allergy status to other drugs, medicaments and biological substances
CPT/HCPCS: 36415; 74018; 74177; 74250; 80053; 81001; 82150; 83690; 83735; 84100; 85025; 96361; 96374; 96375; 96376; 99284; A4649; G0378; J1171; J1644; J2270; J2405; J2765; J3475; J3490; J7120; Q9963; Q9967; A9270

== ENCOUNTER 2025-04-12 01:26 | Emergency (ER) | payer MEDICAID, SELFPAY ==
[2025-04-12 01:27] VITALS: BMI 26.4
[2025-04-12 02:34] VITALS: BP 131/77; PULSE 92; RESP 18; TEMP 36.7; O2SAT 98
--- NOTE | 2025-04-12 02:45 | PD.EDEYE ---
ED Eye Problem RME/HPI General Chief complaint: Eye Problems Stated complaint: LEFT EYE PAIN Time Seen by Provider: 04/12/25 02:41 Arrival date/time: 04/12/25 01:26 This is a case of 59-year-old female with no medical history came in in the emergency room due to pain on the left upper and left lower eyelid for 2 days patient states that she was in the backyard and started to have pain redness and swelling on the left upper and lower eyelid patient denies any blurring of vision denies any eye injury or trauma denies any eye pain patient stated that due to pain in the left upper eyelid she started to have headache denies any injury or trauma denies any blurring of vision denies any numbness weakness tingling sensation Limitations: no limitations Related Data Home Medications ?Medication ?Instructions ?Recorded ?Confirmed clotrimazole 1 % topical solution 1 applic topical Q12H 03/26/25 03/26/25 conjugated estrogens 0.9 mg tablet 0.9 mg PO DAILY 03/26/25 03/26/25 (Premarin) docusate sodium 100 mg capsule 100 mg PO BID 03/26/25 03/26/25 fluoxetine 60 mg tablet 60 mg PO DAILY 03/26/25 03/26/25 levothyroxine 50 mcg tablet 50 mcg PO DAILY 03/26/25 03/26/25 lifitegrast 5 % eye drops in a 1 drp ophthalmic (eye) Q12H 03/26/25 03/26/25 dropperette (Xiidra) Previous Rx's ?Medication ?Instructions ?Recorded doxycycline monohydrate 100 mg 100 mg PO BID #20 caps 04/12/25 capsule erythromycin 5 mg/gram (0.5 %) eye 0.5 inch ophthalmic (eye) TID #3.5 04/12/25 ointment grams Allergies Allergy/AdvReac Type Severity Reaction Status Date / Time gabapentin Allergy Severe Swelling Verified 03/26/25 16:06 of Lip/Tongue/Throat pregabalin (From Lyrica) Allergy Severe Swelling Verified 03/26/25 16:06 of Lip/Tongue/Throat duloxetine (From Cymbalta) AdvReac Severe Swelling Verified 03/26/25 16:06 of Lip/Tongue/Throat FLU SHOT Allergy Uncoded 03/26/25 16:06 Review of Systems Review of Systems Systems Reviewed: All systems reviewed, normal except as documented Constitutional Constitutional: Reports system reviewed and no additional complaints, except as documented and Reports as per HPI Eyes Eyes: Reports system reviewed and no additional complaints, except as documented, Reports as per HPI, Denies blind spots, Denies blurry vision, Denies change in vision, Denies decreased night vision, Denies diplopia, Denies eye discharge, Denies dry eyes, Denies exophthalmos, Denies floaters, Denies irritation, Denies itchy eyes, Denies loss of peripheral vision, Denies loss of vision, Denies photophobia, Denies requires corrective lenses, Denies seeing flashes, Denies spots in vision and Denies tunnel vision Cardiovascular Cardiovascular: Reports system reviewed and no additional complaints, except as documented and Reports as per HPI Respiratory Respiratory: Reports system reviewed and no additional complaints, except as documented and Reports as per HPI Gastrointestinal Gastrointestinal: Reports system reviewed and no additional complaints, except as documented and Reports as per HPI Musculoskeletal Musculoskeletal: Reports system reviewed and no additional complaints, except as documented and Reports as per HPI Neurologic Neurologic: Reports system reviewed and no additional complaints, except as documented, Reports as per HPI and Denies loss of vision Allergic/Immunologic Allergic/Immunologic: Denies itchy eyes Past Medical History Past Medical History CARDIAC: Negative Cardiac Disorders or Congestive Heart Failure RESPIRATORY: Negative Chronic Obstructive Pulmonary Disease (COPD) or Asthma GASTROINTESTINAL: Positive Gastrointestinal Disorders and Obstructive Bowel GENITOURINARY: Negative Renal Disease REPRODUCTIVE: Positive Previous Pregnancies MUSCULOSKELETAL: Positive Fractures (Right hip) ENDOCRINE: Positive Hypothyroidism; Negative Diabetes Mellitus Type 1 or Diabetes Mellitus Type 2 HEMATOLOGIC: Negative Sickle Cell Disease OTHER HISTORY: Positive Hospitalization and Blood Transfusions; Negative Blood Transfusion Reaction or Anesthesia Reactions Surgical History SURGICAL: Positive Abdominal Surgery (x2 abdominal surgery 2007) Social History SMOKING STATUS: Never smoker ED Exam General Limitations: Present no limitations General appearance: Present alert, in no apparent distress and other (Patient is awake alert oriented not in distress nontoxic looking well-hydrated well-nourished) Head Head exam: Present atraumatic, normocephalic and normal inspection Eye Eye exam: Present normal appearance, PERRL, EOMI and other (PERRL EOM intact normal conjunctiva no papilledema no hyphema no periorbital cellulitis noted a redness swelling tenderness on the left upper and lower eyelid no discharge no foreign body suggestive of external hordeolum the rest of the eye exam were normal and unremarkable) ENT ENT exam: Present normal exam, normal oropharynx, mucous membranes moist and other (Normal HEENT exam) Neck Neck exam: Present normal inspection, full ROM, trachea midline and other (34 meningeal sign); Absent tenderness, meningismus, lymphadenopathy or thyromegaly Chest Chest inspection: Present normal inspection and symmetric chest wall rise; Absent tenderness Respiratory Respiratory exam: Present normal lung sounds bilaterally; Absent respiratory distress, wheezes, stridor, accessory muscle use or prolonged expiratory phase Cardiovascular Cardiovascular exam: Present regular rate, normal rhythm and normal heart sounds; Absent bradycardia, tachycardia, irregular rhythm, systolic murmur or diastolic murmur Abdominal Exam Abdominal exam: Present soft and normal bowel sounds; Absent distention, tenderness, guarding, rebound, rigidity, diminished bowel sounds, hyperactive bowel sounds, hypoactive bowel sounds or organomegaly Extremities Exam Extremities exam: Present normal inspection and full ROM Back Exam Back exam: Present normal inspection and full ROM Neurological Exam Neurological exam: Present alert, oriented X3, CN II-XII intact, normal gait, reflexes normal and other (Awake alert oriented x 4 no focal deficit GCS 15/15 steady gait motor or sensory reflex were all normal in all extremities CN II to XII is normal no slurring of speech no facial droop memory intact negative Babinski); Absent motor sensory deficit Psychiatric Psychiatric exam: Present normal affect and normal mood Skin Skin exam: Present warm, dry, intact and normal color Course Quality Measures none Orders Category Date Time Status HYDROcodone*/APAP 5/325 [[place] 5/325] Med 04/12/25 02:44 Once 1 tab PO X1 ONE Ketorolac Inj [Toradol Inj] Med 04/12/25 02:44 Once 30 mg IM X1 ONE Ondansetron Odt [Zofran Odt] Med 04/12/25 02:44 Once 4 mg PO X1 ONE Vital Signs Vital signs: Vital Signs Temperature 98.1 F 04/12/25 02:34 Pulse Rate 92 04/12/25 02:34 Respiratory Rate 18 04/12/25 02:34 Blood Pressure 131/77 H 04/12/25 02:34 Pulse Oximetry (%) 98 04/12/25 02:34 Oxygen Delivery Method Room Air 04/12/25 02:34 Oxygen saturation is 98 8% normal room air Eye MDM Narrative MDM Narrative:: This is a case of 59-year-old female with no medical history came in in the emergency room due to pain on the left upper and left lower eyelid for 2 days patient states that she was in the backyard and started to have pain redness and swelling on the left upper and lower eyelid patient denies any blurring of vision denies any eye injury or trauma denies any eye pain patient stated that due to pain in the left upper eyelid she started to have headache denies any injury or trauma denies any blurring of vision denies any numbness weakness tingling sensation physical examination patient is awake alert oriented not in distress nontoxic looking neurological exam is normal awake alert oriented x 4 no focal deficit GCS 15/15 steady gait memory intact no slurring speech no facial droop motor or sensory reflex are all normal in all extremities negative Babinski patient noted to have a redness tenderness swelling on the left upper and left lower eyelid suggestive of stye normal conjunctiva no palpable edema no hyphema the rest of the physical examination and neurological exam were normal and unremarkable after giving Toradol [place] Zofran headache was resolved patient was prescribed with erythromycin ointment and doxycycline for external hordeolum patient will follow-up with PCP in 2 days for reevaluation and for any worsening symptoms or any emergent concerns she will return to the emergency room immediately or call 911 Patient was discharged with comfortable condition walking with stable gait. Patient verbalized no further complains explained diagnosis and answered patient question. Patient is comfortable with the proposed management plan including the need to follow up with his/her primary care physician and any specialist if applicable Discussed patient for any urgent condition or worsening sx, He/She needed to go to emergency room immediately or call 911. Patient acknowledge the responsibility to follow up as instructed and to monitor her/his symptoms. For any persistence of the symptoms for more than 3-5 days return precaution advised. Discussed the result of the test and was given printed discharge instruction Patient data External records reviewed:: [facility] previous records Clinical information provided by:: patient Social determinants that could affect healthcare access:: none Patient has the following chronic illnesses:: None How is presenting disease/condition affected by chronic disease/condition?: no chronic disease Evaluation data The following diagnostics were reviewed and interpreted by me:: other (specify) (None) Lab and/or radiology exams considered but not ordered:: None Interpretation Summary: None Medications / Prescriptions Medications or Prescriptions considered but not ordered:: Given Medication administrations:: Medication Administration History Hydrocodone Bitart/Acetaminophen (Hydrocodone/Apap 5/325 Tablet) 1 tab PO X1 ONE Stop: 04/12/25 02:45 Ketorolac Tromethamine (Ketorolac Inj 60 Mg/2 Ml Vial) 30 mg IM X1 ONE Stop: 04/12/25 02:45 Ondansetron HCl (Ondansetron Odt 4 Mg Tabrap) 4 mg PO X1 ONE; Protocol Stop: 04/12/25 02:45 Given Consultations Consultation(s) initiated? (list below): No Diagnosis Eye Problem Differential Diagnosis: conjunctivitis and other (Stye external hordeolum) Most likely diagnosis given after review of the tests above:: External hordeolum Admission Indicated Admission indicated?: not indicated Explain why admission is indicated or not indicated:: Not indicated Admission Request Was there a request for admission?: No Admission Attestation Admission request attestation: Not indicated Disposition Plan Disposition Plan: Discharge Discharge Attestation Discharge Attestation: The patient and all family members were given an opportunity to ask questions and understood the discharge instructions. Discharge instructions specifically effects, indications for sooner follow up or return to the emergency department, and the expected course of current diagnosis. Patient condition: Stable Discharge Plan Plan Patient Disposition: HOME (Self Care) Patient condition on transfer: Stable Prescriptions/Referrals Prescriptions/Med Rec: New erythromycin 5 mg/gram (0.5 %) ointment 0.5 inch ophthalmic (eye) TID Qty: 3.5 0RF Rx Instructions: Left upper and lower eyelid doxycycline monohydrate 100 mg capsule 100 mg PO BID Qty: 20 0RF No Action Xiidra 5 % dropperette 1 drp OPHTHALMIC (EYE) Q12H Patient Comments: INSTILL 1 DROP IN BOTH EYES TWICE DAILY FOR 30 DAYS clotrimazole 1 % solution 1 applic TOPICAL Q12H Patient Comments: APPLY TO AFFECTED AREA TWICE A DAY Premarin 0.9 mg tablet 0.9 mg PO DAILY Patient Comments: TAKE 1 TABLET BY MOUTH EVERY DAY docusate sodium 100 mg capsule 100 mg PO BID Patient Comments: TAKE 1 CAPSULE BY MOUTH TWICE A DAY NEEDED FOR CONSTIPATION fluoxetine 60 mg tablet 60 mg PO DAILY Patient Comments: TAKE 1 TABLET BY MOUTH EVERY DAY levothyroxine 50 mcg tablet 50 mcg PO DAILY Patient Comments: TAKE 1 TABLET BY MOUTH EVERY DAY Problem List Clinical Impression: External hordeolum, Headache Patient/Caregiver Discharge Instructions Education Materials: Self-Care for Headaches, ED Sty Additional Instructions: Follow-up with your primary care physician in 2 days for reevaluation worsening symptoms or any emergent concern call 911 or go to the nearest emergency room applied medication as directed finish the course of antibiotic warm compresses advised Print Language: Nepalese Stand Alone Forms: Neema Award Info., Patient Portal Info Letter PA/MANAGER BUSINESS BANKING Supervising Physician PA/MANAGER BUSINESS BANKING Supervising Physician: Dr. Diane Moser
[2025-04-12] MEDS: HYDROcodone/APAP 5/325 TABLET 1 TAB PO (02:51)
[2025-04-12] MEDS: ONDANSETRON ODT 4 MG TABRAP PO (02:51)
[2025-04-12] MEDS: KETOROLAC INJ 60 MG/2 ML VIAL 30 MG IM (02:52)
== END 2025-04-12 02:55 | disposition home or self-care (01) ==
LOC: SERX 02:59
PROVIDERS: Emergency Provider Emergency Medicine
DX: H00.015 Hordeolum externum left lower eyelid (principal); H00.014 Hordeolum externum left upper eyelid; R51.9 Headache, unspecified
CPT/HCPCS: 96372; 99283; J1885; Q0162; A9270